=== PATIENT | male | born 2005 | race Caucasian/White ===

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

== ENCOUNTER → 2023-08-14 15:34 | Outpatient (BNVA) | payer MEDICAID, SELFPAY | PROVIDERS: PCP Nurse Practitioner; Visit Provider Nurse Practitioner Family | DX: R05.9 Cough, unspecified (principal) | CPT/HCPCS: 87400; 87426 ==

== ENCOUNTER → 2023-12-10 09:52 | Outpatient (BNVA) | payer MEDICAID, SELFPAY | PROVIDERS: PCP Nurse Practitioner Family; Visit Provider Nurse Practitioner Family | DX: Z13.6 Encounter for screening for cardiovascular disorders (principal) | CPT/HCPCS: 80053; 80061; 85025 ==

== ENCOUNTER 2024-04-14 20:55 | Emergency (ER) | payer MEDICAID, SELFPAY ==
[2024-04-14 20:58] VITALS: BP 154/74; PULSE 98; RESP 18; TEMP 37; O2SAT 98; BMI 32.3
--- NOTE | 2024-04-14 22:36 | USR_ITS ---
PROCEDURE INFORMATION: Exam: US Right Limited Joint or Other Non-Vascular Extremity Structure Exam date and time: 04/14/2024 9:56 PM Age: 18 years old Clinical indication: Mass or lump; Lower leg; Patient HX: Spontaneously appearing in the last 7 hours are small, palpable, soft lumps on bilateral lateral-anterior calf areas. No known trauma. ; Additional info: Eval knots on bilateral legs TECHNIQUE: Imaging protocol: US right limited joint or other nonvascular extremity structure. Real-time ultrasound with image documentation. Exam focused on the area of clinical interest. COMPARISON: No relevant prior studies available. FINDINGS: Soft tissues: Fascial defect is identified with herniation muscle tissue into the subcutaneous tissues . the herniated material contains a small amount of fluid. No hyperemia to suggest abscess or inflammation. US/US soft tissue/extremity 58252 IMPRESSION: Herniated muscle tissue through the fascia defect into the subcutaneous tissues corresponding to palpable abnormality. Correlation with nonemergent MRI is recommended
--- NOTE | 2024-04-14 23:05 | ED_ITS ---
HPI - Extremity Problem General: Chief complaint: Extremity Injury, Lower Stated complaint: niall on both legs Time Seen by Provider: 04/14/24 20:56 Source: patient and other (caregiver) Mode of arrival: ambulatory Limitations: no limitations History of Present Illness: Patient is a 18-year-old male with past medical history of ADHD, autism, and anxiety who presents to the emergency department complaining of knots on bilateral lower extremities. He notices a day, they have been nonpainful and he has not had any associated symptoms. He states that they divine a marker around them, and it appears that they are gravitating below the initial markings. Denies any trauma. He has never had issues like this before, and yesterday did not have any noticeable months. Jukebox Operator in the room does state that they seem to have gone down since they initially presented earlier today. MD Complaint: other ( Knots on bilateral extremities ) Onset (ago): hour(s) Pain Consistency: constant Location: left, right and lower extremity Associated symptoms: Deny chest pain, fever(s) or rash Related Data Home Medications Medication Instructions Recorded Confirmed acetaminophen 325 mg tablet 650 mg PO QID PRN pain or fever of 02/01/22 02/13/24 100.5 or greater melatonin 3 mg tablet 3 mg PO .8 pm 02/01/22 02/13/24 polyethylene glycol 3350 17 17 g PO DAILY 02/01/22 02/13/24 gram/dose oral powder escitalopram oxalate 5 mg tablet 5 mg PO DAILY 11/19/22 02/13/24 Previous Rx's Medication Instructions Recorded guanfacine 2 mg tablet 2 mg PO BID #60 tabs 09/20/22 cetirizine 10 mg tablet 10 mg PO DAILY #90 tabs 05/24/23 fluticasone propionate 50 1 spray intranasal DAILY #16 grams 06/13/23 mcg/actuation nasal spray,suspension (Flonase Allergy Relief) bismuth subsalicylate 262 mg/15 mL 524 mg (30 mL) PO QID PRN gi upset 08/14/23 oral suspension (Pepto-Bismol) #354 mL ondansetron HCl 4 mg tablet 4 mg PO Q6H PRN nausea and 08/14/23 vomiting #30 tabs bug spray 1 spray as directed DIRECTED 11/25/23 contact with bugs #1 Can ibuprofen 600 mg tablet 600 mg PO TID PRN pain #30 tabs 11/25/23 sunblock 1 spray as directed DIRECTED #1 11/25/23 Can buspirone 10 mg tablet See Rx Instructions .Route 02/20/24 .COMPLEX #60 tabs Allergies Allergy/AdvReac Type Severity Reaction Status Date / Time No Known Allergies Allergy Verified 02/13/24 13:55 Review of Systems General: Reports: 10 or more systems reviewed and unremarkable except in HPI and below Const: Denies: fever(s) or chills Card: Denies: chest pain Resp: Denies: dyspnea or productive cough GI: Denies: abdominal pain, nausea, vomiting or diarrhea : Denies: flank pain Musc: Denies: neck pain, back pain, extremity pain, extremity swelling, joint pain, joint swelling, joint redness, joint warmth, limited range of motion or muscle weakness Skin/Breast: Reports: new lesions ( Knots on bilateral lower extremities ); Denies: rash Neuro: Denies: headache(s), numbness in extremities or weakness in extremities PFSH ED PFSH: Medical History Autism ADHD (attention deficit hyperactivity disorder), combined type Tic disorder, unspecified Generalized anxiety disorder Surgical History History of foot surgery Complete nail remove 10 toes Family History Other Family history not known due to adoption Social History Smoking and tobacco/nicotine status: never used tobacco/nicotine Second hand smoke exposure: No Alcohol intake: never Substance/Drug Use: never Caregiver/support person: Yes Lives independently: No (Mónica Ordonez) Household members: other Details: jail Housing: Other Details: Mónica Ordonez Marital status: Single Highest education level completed: High School Graduate Current gender identity: Male Special abbi needs: No Agree to transfusion: Yes Physical Exam Const: COMMON NORMALS: no acute distress, patient oriented x3, no limitations, healthy appearing, alert and well nourished HENMT: COMMON NORMALS: normocephalic and atraumatic HEAD & SCALP: normocephalic and atraumatic Neck/C-Spine: COMMON NORMALS: full ROM, supple and no meningeal signs Resp: COMMON NORMALS: normal respiratory effort, No use of accessory muscles and clear to auscultation bilaterally AUSCULTATION: clear to auscultation bilaterally Cardio: COMMON NORMALS: regular rate and regular rhythm RATE: regular rate RHYTHM: regular rhythm Extremity: COMMON NORMALS: full ROM, capillary refill normal, no joint enlargement and no clubbing, cyanosis or edema NARRATIVE EXTREMITY EXAM: On the lateral aspect of both the right and left lateral [place], there are palpable subcutaneous nodules that do not appear to be painful and with no overlying skin changing. Neuro: COMMON NORMALS: patient oriented x3, moves all extremities, no focal motor deficits and no sensory deficits noted SENSORIUM/ORIENTATION: Yes alert MENINGEAL SIGNS: Yes no meningeal signs Skin: COMMON NORMALS: no rashes or lesions noted GENERAL SKIN EXAM: no rashes or lesions noted Course Vital Signs: Vital signs: Vital Signs Temperature 98.6 F 04/14/24 20:58 Pulse Rate 98 04/14/24 20:58 Respiratory Rate 18 04/14/24 20:58 Blood Pressure 154/74 04/14/24 20:58 Pulse Oximetry 98 04/14/24 20:58 Oxygen Delivery Me thod Room Air 04/14/24 20:58 MDM - Extremity (Nontraumatic) Medical Decision Making Patient presented with numbness to bilateral lower legs, seem to be migrating when comparing the current presentation with previously marked boundaries. He had no symptoms to report, these did not cause him any pain. Ultrasound showing subfascial herniation bilaterally, and he had no physical exam findings that were concerning with compartment syndrome. I spoke with Dr. Fitzgerald, podiatry, who kindly agrees to see the patient in the office and has no further recommendations at this time. Discussed this plan with caregiver at bedside, all other questions and concerns were addressed and return precautions were given appropriately. Discussed case with Dr. Gilbert. XR interpretation done by ED provider, pending radiology final review ED provider radiology interpretation(s): Ultrasound interpretation at bedside showing bilateral subfascial herniation of the lower extremities. Discharge Plan Discharge Patient Disposition: Home Clinical Impression: Hernia of muscle through fascia of lower leg Condition: Stable Prescriptions: No Action ondansetron HCl 4 mg tablet 4 mg PO Q6H PRN (Reason: nausea and vomiting) Qty: 30 0RF bismuth subsalicylate [Pepto-Bismol] 262 mg/15 mL suspension 524 mg PO QID PRN (Reason: gi upset) Qty: 354 0RF Rx Instructions: do not exceed 8 doses in a 24 hour period acetaminophen 325 mg tablet 650 mg PO QID PRN (Reason: pain or fever of 100.5 or greater) melatonin 3 mg tablet 3 mg PO .8 pm polyethylene glycol 3350 17 gram/dose powder 17 g PO DAILY escitalopram oxalate 5 mg tablet 5 mg PO DAILY guanfacine 2 mg tablet 2 mg PO BID Qty: 60 2RF cetirizine 10 mg tablet 10 mg PO DAILY Qty: 90 1RF fluticasone propionate [Flonase Allergy Relief] 50 mcg/actuation spray,suspension 1 spray intranasal DAILY Qty: 16 3RF Rx Instructions: administer into each nostril sunblock 1 spray as directed DIRECTED Qty: 1 3RF bug spray 1 spray as directed DIRECTED Qty: 1 3RF ibuprofen 600 mg tablet 600 mg PO TID PRN (Reason: pain) Qty: 30 0RF buspirone 10 mg tablet See Rx Instructions .ROUTE .COMPLEX Qty: 60 2RF Dose Instruction: TAKE ONE TABLET BY MOUTH TWICE DAILY FOR ANXIETY Rx Instructions: TAKE ONE TABLET BY MOUTH TWICE DAILY FOR ANXIETY Discharge Orders: Discharge ED (Routine); Ordered 04/14/24 Ordered By: Raman Flynn Referrals: Yoko Ivey FNP [Primary Care Provider] - Activity Restrictions/Additional Instructions: Follow-up with podiatry as discussed. Please return if you start to develop any lower leg swelling, color changes, coolness, paralysis, or other concerning symptoms you may have. Coding Level of Care Code ED Supervisor Statement Clerks for Juan C Lanier
[2024-04-15 00:08] VITALS: BP 138/83; PULSE 102; O2SAT 93
--- NOTE | 2024-04-16 09:46 | DCPLANNER ---
messaged podiatry for er f/u
== END 2024-04-15 00:10 | disposition home or self-care (01) ==
PROVIDERS: Emergency Provider Physician Assistant; PCP Nurse Practitioner Family
DX: M62.89 Other specified disorders of muscle (principal)
CPT/HCPCS: 76882; 99284

== ENCOUNTER → 2024-12-22 14:34 | Outpatient (BNVA) | payer MEDICAID, SELFPAY | PROVIDERS: PCP Nurse Practitioner Family; Visit Provider Nurse Practitioner Family | DX: J30.89 Other allergic rhinitis (principal); F84.0 Autistic disorder | CPT/HCPCS: 80053; 80061; 84443; 85025 ==